=== PATIENT | male | born 1985 | race Two or more races ===

== ENCOUNTER 2022-04-03 15:39 | Outpatient (REF) | payer OTHER, SELFPAY ==
--- NOTE | ~2022-04-03 | MR_ITS ---
EXAMINATION: MR BRAIN WITHOUT AND WITH CONTRAST CLINICAL INFORMATION: 36-year-old with history of left-sided Sosa's palsy, headaches and diplopia. COMPARISON: None TECHNIQUE: Multiplanar, multisequence MRI of the brain/IACs was obtained before and after the intravenous administration of 8 mL Gadavist. FINDINGS: IACs: Bilaterally symmetric, no mass lesions or abnormal enhancement. CN VII-VIII complexes normal. AICA Loops: Type I on right. Membranous Labyrinths: Normal, no abnormal enhancement. CP Angle Cisterns: No mass lesions or abnormal enhancement. Brain Volume: Within normal limits within the limitations of qualitative assessment. Brain and Meninges: DWI sequence demonstrates no restricted diffusion. Specifically, there is no evidence for acute or subacute cerebral ischemia. Normal appearance to the cisternal and cavernous portions of the trigeminal nerves bilaterally. Cavernous sinuses enhance symmetrically and normally. A single punctate nonenhancing FLAIR/T2 signal hyperintensity in the left frontal subcortical white matter is noted. Otherwise, the remainder of the brain is normal in morphology and signal intensity. Gradient refocused imaging demonstrates no evidence for hemorrhage, hemosiderin staining or abnormal mineral deposition. No intracranial mass lesions, pathologic enhancement, extra-axial fluid collection, space-occupying process, or mass effect. Padilla-white matter interface is preserved. Vessels: Normal signal voids are seen in the visualized major intracranial vessels. Ventricles and Subarachnoid Spaces: The ventricular system and subarachnoid spaces are within normal limits without hydrocephalus. Orbital Structures: Limited assessment. The visualized orbital structures are grossly unremarkable within the limitations of the study. Osseous Structures, Sinuses/Mastoids, Extracranial Soft Tissues: There is a 1.2 cm ovoid enhancing nodule within the scalp soft tissues overlying the right posterior temporal/occipital region, which is a nonspecific finding. Correlate with physical examination and follow up clinically for this. Bony structures appear grossly intact. MR/MR head/brain wo/w con IMPRESSION: 1. Normal appearance to the IACs, inner ear structures and CP angle cisterns. No mass lesion or abnormal enhancement identified. 2. A single nonenhancing punctate T2 hyperintensity in the left frontal subcortical white matter is a nonspecific finding. 3. 1.2 cm enhancing nodule in the subcutaneous soft tissues of the right temporal/occipital scalp region. Finding is nonspecific. Recommend clinical follow up to confirm stability.
== END 2022-04-03 15:40 | disposition home or self-care (01) ==
LOC: HO.MRI 15:39
PROVIDERS: Visit Provider Psychiatry & Neurology Neurology
DX: R29.90 Unspecified symptoms and signs involving the nervous system (principal); H53.2 Diplopia
CPT/HCPCS: 70553; A9585